=== PATIENT | female | born 1980 | race Caucasian/White ===

== ENCOUNTER 2020-07-14 13:13 | Outpatient (REF) | payer OTHER, SELFPAY | END 2020-07-14 13:14 | disposition home or self-care (01) | LOC: HO.LAB 13:13 | PROVIDERS: Visit Provider Internal Medicine | DX: Z20.822 Contact with and (suspected) exposure to COVID-19 (principal) | CPT/HCPCS: C9803; U0003; U0005 ==

== ENCOUNTER 2021-06-07 10:06 | Outpatient (REF) | payer MEDICAID, SELFPAY ==
--- NOTE | ~2021-06-07 | MM_ITS ---
EXAMINATION: MM SCREENING DIGITAL BREAST TOMOSYNTHESIS, BILATERAL CLINICAL INFORMATION: Screening. Asymptomatic. No prior breast imaging. Age 41. The lifetime risk of breast cancer based on the Tyrer-Cuzick Model is 13%. COMPARISON: None (current study represents initial baseline exam). TECHNIQUE: Digital breast tomosynthesis is performed in both the craniocaudal and mediolateral oblique views along with computer-aided detection (CAD). Synthesized 2D images are generated from the tomosynthesis. Additional exaggerated right CC and additional right MLO views are provided. FINDINGS: There are scattered areas of fibroglandular density (ACR BI-RADS breast composition Category b). There are no significant masses, abnormal calcifications, or other abnormalities. Breast tissue composition borders on heterogeneously dense. The axilla and skin contours are unremarkable. MM/MM tomosynthesis screening BI IMPRESSION: No mammographic evidence of malignancy. ASSESSMENT: BI-RADS 1: Negative RECOMMENDATION: Routine annual mammography screening. This patient's information was entered into a reminder system with a target due date for their next mammogram.
== END 2021-06-07 10:07 | disposition home or self-care (01) ==
LOC: HO.MAMMO 10:06
PROVIDERS: Visit Provider Nurse Practitioner Family
DX: Z12.31 Encounter for screening mammogram for malignant neoplasm of breast (principal)
CPT/HCPCS: 77063; 77067

== ENCOUNTER 2022-10-03 13:49 | Outpatient (REF) | payer MEDICAID, SELFPAY ==
--- NOTE | ~2022-10-03 | MM_ITS ---
EXAMINATION: MM SCREENING DIGITAL BREAST TOMOSYNTHESIS, BILATERAL CLINICAL INFORMATION: Screening. Asymptomatic. The lifetime risk of breast cancer based on the Tyrer-Cuzick Model is 18.3%. COMPARISON: Mammography: This study is compared with prior exams dating back to 2021. TECHNIQUE: Digital breast tomosynthesis is performed in both the craniocaudal and mediolateral oblique views along with computer-aided detection (CAD). Synthesized 2D images are generated from the tomosynthesis. FINDINGS: There are scattered areas of fibroglandular density (ACR BI-RADS breast composition Category b). There are no significant masses, abnormal calcifications, or other abnormalities. MM/MM tomosynthesis screening BI IMPRESSION: No mammographic evidence of malignancy. ASSESSMENT: BI-RADS BI-RADS 1 - Negative RECOMMENDATION: Routine annual mammography screening. 1 year F/U This examination should not preclude the clinical evaluation of a suspicious palpable abnormality. This patient's information was entered into a reminder system with a target due date for their next mammogram.
== END 2022-10-03 13:50 | disposition home or self-care (01) ==
LOC: HO.MAMMO 13:49
PROVIDERS: PCP Student in an Organized Health Care Education/Training Program; Visit Provider Student in an Organized Health Care Education/Training Program
DX: Z12.31 Encounter for screening mammogram for malignant neoplasm of breast (principal)
CPT/HCPCS: 77063; 77067

== ENCOUNTER → 2022-10-03 14:00 | Outpatient (BNV) | payer MEDICAID, SELFPAY | PROVIDERS: PCP Student in an Organized Health Care Education/Training Program; Visit Provider Radiology Diagnostic Radiology | DX: Z12.31 Encounter for screening mammogram for malignant neoplasm of breast (principal) | CPT/HCPCS: 77063; 77067 ==

== ENCOUNTER 2023-01-16 11:58 | Outpatient (REF) | payer MEDICAID, SELFPAY ==
[2023-01-16 14:01] LABS: Estimated Average Glucose 126 mg/dL
[2023-01-16 14:34] LABS: Alanine Aminotransferase 20 U/L (0-31); Albumin Level 4.1 g/dL (3.5-5.0); Alkaline Phosphatase 88 U/L (39-117); Anion Gap 9 (12-20); Aspartate Amino Transferase 17 U/L (5-31); Bilirubin Total 0.4 mg/dL (0.0-1.0); Blood Urea Nitrogen 10 mg/dL (9-16); Calcium 9.2 mg/dL (8.4-10.2); Carbon Dioxide 31 mmol/L (22-29); Chloride 101 mmol/L (96-108); Estimated Glomerular Filt Rate > 60; Glucose Random 107 mg/dL (60-115); Potassium 3.7 mmol/L (3.3-5.1); Sodium 137 mmol/L (135-145); Total Protein 7.8 g/dL (6.5-8.0)
== END 2023-01-16 11:59 | disposition home or self-care (01) ==
LOC: HO.HHCL 11:58
PROVIDERS: Visit Provider Student in an Organized Health Care Education/Training Program
DX: R73.03 Prediabetes (principal)
CPT/HCPCS: 36415; 80053; 83036

== ENCOUNTER 2023-03-22 17:11 | Outpatient (REF) | payer MEDICAID, SELFPAY ==
[2023-03-30 06:05] LABS: HPV mRNA E6/E7 rflx Not Detected (Not Detected)
== END 2023-03-22 17:12 | disposition home or self-care (01) ==
LOC: HO.HHCLNP 17:11
PROVIDERS: Visit Provider Advanced Practice Midwife
DX: Z30.431 Encounter for routine checking of intrauterine contraceptive device (principal)
CPT/HCPCS: 87624; 88142

== ENCOUNTER 2023-11-09 11:41 | Outpatient (REF) | payer MEDICAID, SELFPAY ==
[2023-11-09 13:45] LABS: Hematocrit 41.2 % (37.0-47.0); Hemoglobin 13.6 g/dl (12.0-16.0); Mean Corpuscular Hemoglobin 29.8 pg (27.0-33.0); Mean Corpuscular Volume 90.4 fL (80.0-98.0); Mean Platelet Volume 10.5 fL (9.4-12.3); Platelet Count 327 X10*3/uL (160-400); Red Blood Count 4.56 X10*6/uL (4.20-5.50); Red Cell Distribution Width 12.8 % (11.0-16.0); White Blood Count 5.6 X10*3/uL (4.8-10.8)
[2023-11-09 14:22] LABS: Estimated Average Glucose 120 mg/dL; Hemoglobin A1c % 5.8 % (<6.0)
[2023-11-09 14:26] LABS: Alanine Aminotransferase 17 U/L (0-31); Albumin Level 4.1 g/dL (3.5-5.0); Alkaline Phosphatase 76 U/L (39-117); Anion Gap 10 (12-20); Aspartate Amino Transferase 15 U/L (5-31); Bilirubin Total 0.2 mg/dL (0.0-1.0); Blood Urea Nitrogen 11 mg/dL (9-16); Carbon Dioxide 26 mmol/L (22-29); Chloride 106 mmol/L (96-108); Cholesterol 188 mg/dL (<200); Estimated Glomerular Filt Rate > 60; Glucose Random 89 mg/dL (60-115); HDL Cholesterol 50 mg/dL (>40); LDL Cholesterol Calculated 123 mg/dL (<100); Sodium 138 mmol/L (135-145); TSH reflex Free T4 0.46 uIU/mL (0.32-4.0); Total Protein 7.8 g/dL (6.5-8.0); Triglycerides 79 mg/dL (<150); Vitamin D 25-OH Total 38.2 ng/mL (>30)
[2023-11-10 07:24] LABS: Syphilis Screen Nonreactive (Nonreactive)
[2023-11-10 07:44] LABS: HBS Num1 0.22 mIU/mL (0-7.99); HBc Num1 0.33 S/CO (0.00-0.79); HBsAGNum1 0.28 S/CO (0.00-0.99); HIV AB/AG Nonreactive (Nonreactive); Hepatitis B Core Antibody Nonreactive (Nonreactive); Hepatitis B Surface Antigen Negative (Negative); ~HepC Num1 0.16 S/CO (0.00-0.79); ~Hepatitis B Surface Antibody NONREACTIVE (Nonreactive); ~Hepatitis C Antibody Nonreactive (Nonreactive)
== END 2023-11-09 11:42 | disposition home or self-care (01) ==
LOC: HO.HHCL 11:41
PROVIDERS: Visit Provider Student in an Organized Health Care Education/Training Program
DX: Z00.00 Encounter for general adult medical examination without abnormal findings (principal)
CPT/HCPCS: 36415; 80053; 80061; 82306; 83036; 84443; 85027; 86704; 86706; 86780; 86803; 87340; 87389

== ENCOUNTER 2024-01-10 09:33 | Outpatient (REF) | payer MEDICAID, SELFPAY ==
[2024-01-10 11:55] LABS: Alanine Aminotransferase 20 U/L (0-31); Albumin Level 3.9 g/dL (3.5-5.0); Alkaline Phosphatase 78 U/L (39-117); Anion Gap 10 (12-20); Aspartate Amino Transferase 18 U/L (5-31); Bilirubin Total 0.3 mg/dL (0.0-1.0); Blood Urea Nitrogen 11 mg/dL (9-16); Calcium 8.6 mg/dL (8.4-10.2); Carbon Dioxide 27 mmol/L (22-29); Chloride 104 mmol/L (96-108); Estimated Glomerular Filt Rate > 60; Glucose Random 82 mg/dL (60-115); Sodium 137 mmol/L (135-145); Total Protein 7.3 g/dL (6.5-8.0)
[2024-01-10 17:20] LABS: CT PCR NOT DETECTED (Not Detect.); NG PCR NOT DETECTED (Not Detect.)
== END 2024-01-10 09:34 | disposition home or self-care (01) ==
LOC: HO.HHCL 09:33
PROVIDERS: Visit Provider Student in an Organized Health Care Education/Training Program
DX: Z00.00 Encounter for general adult medical examination without abnormal findings (principal); I10 Essential (primary) hypertension
CPT/HCPCS: 80053; 87491; 87591

== ENCOUNTER → 2024-02-29 13:00 | Outpatient (BNV) | payer MEDICAID, SELFPAY | PROVIDERS: PCP Student in an Organized Health Care Education/Training Program; Visit Provider Internal Medicine | DX: Z12.31 Encounter for screening mammogram for malignant neoplasm of breast (principal) | CPT/HCPCS: 77063; 77067 ==

== ENCOUNTER 2024-02-29 13:06 | Outpatient (REF) | payer MEDICAID, SELFPAY | END 2024-02-29 13:07 | disposition home or self-care (01) | LOC: HO.MAMMO 13:06 | PROVIDERS: PCP Student in an Organized Health Care Education/Training Program; Visit Provider Student in an Organized Health Care Education/Training Program | DX: Z12.31 Encounter for screening mammogram for malignant neoplasm of breast (principal) | CPT/HCPCS: 77063; 77067 ==

== ENCOUNTER 2024-06-16 12:32 | Outpatient (REF) | payer MEDICAID, SELFPAY ==
[2024-06-16 14:02] LABS: Alanine Aminotransferase 25 U/L (0-31); Albumin Level 4.1 g/dL (3.5-5.0); Alkaline Phosphatase 80 U/L (39-117); Anion Gap 11 (12-20); Aspartate Amino Transferase 23 U/L (5-31); Bilirubin Total 0.3 mg/dL (0.0-1.0); Blood Urea Nitrogen 15 mg/dL (9-16); Calcium 9.2 mg/dL (8.4-10.2); Carbon Dioxide 28 mmol/L (22-29); Chloride 104 mmol/L (96-108); Estimated Glomerular Filt Rate > 60; Glucose Random 85 mg/dL (60-115); Potassium 3.7 mmol/L (3.3-5.1); Sodium 139 mmol/L (135-145); Total Protein 7.7 g/dL (6.5-8.0)
--- OUTSIDE RECORDS SUMMARY | 2024-06-16 14:26 | XMS_ITS | Clinical Summary ---
Author Organization [facility] ity Address [address] [place] [address] Care Team Providers Care Data Center Project Manager Name Role Phone Unavailable Primary Care Provider Unavailabl e Social History Tobacco Use Types Packs/Day Years Used Date Smoking Tobacco: Never Assessed Comments Unknown Sex and Gender Information Value Date Recorded Sex Assigned at Not on file Legal Sex Female 8:25 PM EST Gender Identity Not on file Sexual Orientation Not on file Plan of Treatment Health Maintenance Due Date Last Done Comments Breast Cancer Screening 1979 DTaP,Tdap,and Td Vaccines (1 - Tdap) 1998 Hepatitis B Vaccines (1 of 3 - 19+ 3-dose series) 1998 Cervical Cancer Screening: P ap Smear 02/20/2000 Colorectal Cancer Screening: Colonoscopy 03/30/2023 Depression Screening 03/30/2023 HIV Screening 03/30/2023 Hepatitis C Screening 03/30/2023 Social Influencers of Health Screening 03/30/2023 COVID-19 Vaccine (2023-2 5 season) 2023 Influenza Vaccine (Season Ended) 2024 HIB Vaccines Aged Out No longer eligi ble based on patient's age to complete this topic HPV Vaccines Aged Out No longer eligi ble based on patient's age to complete this topic Hepatitis A Vaccines Aged Out No long er eligible based on patient's age to complete this topic IPV Vaccines Aged Out No longer eligi ble based on patient's age to complete this topic MMR Vaccines Aged Out No longer eligi ble based on patient's age to complete this topic Meningococcal ACWY Vaccine Aged Out N o longer eligible based on patient's age to complete this topic Meningococcal B Vaccine Aged Out No l onger eligible based on patient's age to complete this topic Pneumococcal Vaccine: Pediat rics (0 to 5 Years) and At-Risk Patients (6 to 64 Years) Aged Out No longer eligible b ased on patient's age to complete this topic RSV Immunization Patients Un adilson 20 months Aged Out No longer eligible b ased on patient's age to complete this topic Varicella Vaccines Aged Out No longer eligible based on patient's age to complete this topic
--- OUTSIDE RECORDS SUMMARY | 2024-06-16 14:26 | XMS_ITS | Encounter Summary ---
Author Organization [employer] Address [address] [place] [address] [address] [place] [address] Care Team Providers Care Foot Caster Name Role Phone Rosalie Morejon MD Primary Care Pro vider Reason for Visit * Reason Comments Med Refill Encounter Details Date Type Department Care Team (Late st Contact Info) Description 08/28/2023 Refill [facility] MEDICINE [address] [place], [place] [phone] Rosalie Morejon MD [address] [place], [place] [phone] Social History Tobacco Use Types Packs/Day Years Used Date Smoking Tobacco: Never Passive Smoke Exposure: Never Smokeless Tobacco: Never Alcohol Use Standard Drinks/Week Comments Yes 0 (1 standard drink = 0.6 oz pur e alcohol) social Depression Answer Date Recorded Patient Health Questionnaire-9 Score 1 08/24/2022 Housing Stability Answer Date Recorded What is your housing situation today? I have andrew wynne 08/03/[address] you li ve. Do you have problems with any of the following? None of the above 08/03/2023 Food Insecurity Answer Date Recorded Within the past 12 months, y ou worried that your food would run out before you got money to buy more: Never True 08/03/2023 Within the past 12 months,th e food you bought just didn't last and you didn't have enough money to get more: Never True Transportation Answer Date Recorded In the past 12 months, has l ack of transportation kept you from medical appts, meetings, work or from getting things needed for daily living? No 08/03/2023 Utilities Answer Date Recorded In the past 12 months, has t he electric, gas, oil or water company threatened to shut off services in your home? No 08/03/2023 Depression Answer Date Recorded Patient Health Questionnaire-2 Score 0 08/10/2023 Comments No Sex and Gender Information Value Date Recorded Sex Assigned at Female 01/02/2022 10:36 AM EDT Legal Sex Female 10:36 AM EDT Gender Identity Female 01/02/2022 10:36 AM EDT Sexual Orientation Straight 01/02/2022 10 :36 AM EDT documented as of this encounter Plan of Treatment Upcoming Encounters Date Type Department Care Team (Late st Contact Info) Description 06/17/2024 1:15 PM EDT Procedure Visit [facility] MEDICINE [address] [place] [address] Theresa Neri, EDWIN [address] [place] [address] 07/22/2024 3:00 PM EDT Office Visit [facility] OPTOMETRY [address] [place] [address] Chester, Joann, OD [address] [place] [address] 09/02/2024 10:15 AM EDT Office Visit [facility] MEDICINE [address] [place] [address] Rosalei Morejon MD [address] [place] [phone] documented as of this encounter Visit Diagnoses Not on filedocumented in this encounter Additional Health Concerns Assessment Noted Time PHQ-9 Depression Total Score: 1 08/25/19 23 11:16 AM EDT documented as of this encounter Care Teams Foot Caster Relationship Specialty Start Date End Date Rosalie Morejon MD [address] [place] [id number] PCP - General Internal Medicine 08/04/22 documented as of this encounter
--- OUTSIDE RECORDS SUMMARY | 2024-06-16 14:26 | XMS_ITS | Clinical Summary ---
Author Organization [employer] Address [address] [place] [address] [address] [place] [address] Care Team Providers Care Cook Cold Meat Name Role Phone Rosalie Morejon MD Primary Care Pro vider Allergies No known active allergies Medications Blood Pressure kitIndications :Elevated blood pressure reading 1 Device in the morning. 1 kit 023 Active Alcohol Swabs (Alcohol Pads) 70 % pads Use as directed on skin 100 each 2 023 Active Alcohol Swabs (Alcohol Pads) 70 % pads Use as directed on skin 100 each 3 024 Active hydroCHLOROthi azide (HYDRODiuril) 25 MG tablet Take 1 tablet (25 mg) by mouth in the morning. 90 tablet 024 Active Tirzepatide-We ight Management (Zepbound) 10 MG/0.5ML solution auto-injector Inject 0.5 mL (10 mg) under the skin 1 (one) time per week. 2 mL 025 2024 Active Zepbound 2.5 MG/0.5ML solution auto-injectorI ndications:Pre diabetes,Class 3 severe obesity due to excess calories without serious comorbidity with body mass index (BMI) of 40.0 to 44.9 in adult ([facility]) INJECT ONE PEN (=2.5MG) SUBCUTANEOUSLY ONCE A WEEK DIRECTED 2 mL 025 2024 Discontinued(D ose adjustment) Tirzepatide-We ight Management (Zepbound) 5 MG/0.5ML solution auto-injector Inject 0.05 mL (0.5 mg) under the skin every 7 (seven) days. 2 mL 025 2024 Discontinued Tirzepatide-We ight Management (Zepbound) 7.5 MG/0.5ML solution auto-injector Inject 0.5 mL (7.5 mg) under the skin 1 (one) time per week. 2 mL 025 2024 Discontinued Active Problems Problem Noted Date Diagnosed Date Skin lesions 08/10/2023 Hypertension 12/24/2022 Assessment & Plan (12/24/2022 8:32 AM EDT): Newly dxed HTN w mx elevated BP readings here and at home -EKG today : NSR, HR:77 no ischemic findings QTC 414, -start HDCTZ low dose -ordered today chem -pt will do labs just few days prior to next apt to monitor after 4 weeks of started on med -f BP in 4 weeks Prediabetes 09/25/2022 Assessment & Plan (12/24/2022 8:28 AM EDT): 08/2022 Hb1AC 5.9 -life style changes advised -nutriotinist referral -agreed today -continue metformin 500 mg ER daily -repeat hb1AC and chem today Assessment & Plan (09/25/2022 11:14 PM EDT): 08/2022 Hb1AC 5.9 -life style changes advised -refusing nutriotinist referral -start metformin 500 mg ER daily-explained possible SE -repeat hb1AC and chem in 3 mo Obese 08/24/2022 Assessment & Plan (12/24/2022 8:29 AM EDT): Advised pt to improve diet and exercise,discussed healthy life style -discussed chairman president and chief executive officer referral --referred today -also discussed today x bariatric surgery-refusing x now -reports snoring -loud -referred for sleep med-- gave today information to pt to call for apt Assessment & Plan (09/25/2022 11:11 PM EDT): Advised pt to improve diet and exercise,discussed healthy life style -discussed chairman president and chief executive officer referral --refusing -also discussed today x bariatric surgery-refusing x now -reports snoring -loud -referred today to sleep med -will monitor weight in 3 mo w diet changes advised if not able to weight loss -states will consider bariatric surgery as option Assessment & Plan (08/24/2022 7:38 PM EDT): Advised pt to improve diet and exercise,discussed healthy life style -discussed chairman president and chief executive officer referral --refusing -also discussed today x bariatric surgery-refusing -pt interested in GLP1 med--will eval labs 1st and will discuss w pt at next apt -will discuss about KIYA symptoms at next visit -if positive will refer to sleep med Health care maintenance 08/24/2022 Assessment & Plan (12/24/2022 8:30 AM EDT): -Quantiferon 11/2021 neg -pap smear: 2017 neg -referred to Eduard cook -contraception: IUD -MM 10/2022 BI-RADS 1 - Negative -vaccines: s/p covid 19 x2--refusing Bivalent offered today again, s/p tdap 08/2022 , never HPV vaccine-not interested in vaccination,HepB not immune-refuse vaccine,refusing flu vaccine offered today Assessment & Plan (09/25/2022 11:13 PM EDT): -Quantiferon 11/2021 neg -pap smear: 2017 neg -referredw Eduard Manrique -contraception: IUD -MM 06/2021-BIRADS 1-referred Already pd to have apt -vaccines: s/p covid 19 x2--refusing Bivalent offered today again, s/p tdap 08/2022 , never HPV vaccine-not interested in vaccination,HepB not immune-refuse vaccine Assessment & Plan (08/24/2022 7:36 PM EDT): -Quantiferon 11/2021 neg -pap smear: 2017 neg -referred here today w Eduard Manrique -contraception: IUD -MM 06/2021-BIRADS 1-referred today -vaccines: s/p covid 19 x2--refusing Bivalent offered today, tdap today , never HPV vaccine-not interested in vaccination -labs x annual exam -will RTC in fasting -pt agreed to have STI testing including HIV to have for baseline IUD (intrauterine device) in place 08/15/2022 Hyperlipidemia 05/15/2021 Assessment & Plan (12/24/2022 8:29 AM EDT): 08/2022 Total ch 199, HDL 54, LDL 120 trig 132 ASCVD 0.8% ( no indication x statins) -life style changes advised -repeat in 1 y -at annual exam Assessment & Plan (09/25/2022 11:12 PM EDT): 08/2022 Total ch 199, HDL 54, LDL 120 trig 132 ASCVD 0.8% ( no indication x statins) -life style changes advised -repeat in 1 y Assessment & Plan (08/24/2022 7:33 PM EDT): -repeat fasting lipids Resolved Problems Problem Noted Date Diagnosed Date Resolved Date Elevated blood pressure reading 08/24/2022 12/24/2022 Assessment & Plan (09/25/2022 11:10 PM EDT): Pt not monitoring yet BP at home Here after rechecked manually was normal 08/2022 Microalb neg -pt will bring home BP readings 3 times a week at next apt Assessment & Plan (08/24/2022 7:37 PM EDT): Here w elevated BP today -pt will bring home BP readings 3 times a week at next apt -if ongoing elevated will start BP meds -noted had microalb elevated before -repeat today Encounters Date Type Department Care Team Description 06/06/2024 11:15 AM EDT Office Visit [facility] MED[facility]INE [address] [place] [address] [phone] Rosalie Morejon MD Hypertension, unspecified type (Primary Dx); Class 3 severe obesity due to excess calories without serious comorbidity with body mass index (BMI) of 40.0 to 44.9 in adult ([facility]); Loud snoring; Dietary counseling; Exercise counseling; Health care maintenance 06/06/2024 Travel 05/27/[address] [facility] [address] [place] [phone] Rosalie Morejon MD chart prep 05/23/[address] [facility] P[facility]S [address] [place] [address] Breann Stevens MD 05/19/[address] [facility] [address] [place] [address] Rosalie Morejon MD Jessie Recall 05/16/2024 Population Health Risk Score [facility] Department [address] [place] [phone] Provider, Population Health Generic 05/01/[address] [facility] [address] [place] [address] Rosalie Morejon MD 03/26/[address] [facility] [address] [place] [address] Janessa Morfin ANP Prediabetes; Class 3 severe obesity due to excess calories without serious comorbidity with body mass index (BMI) of 40.0 to 44.9 in adult ([facility]) 03/25/[address] [facility] [address] [place] [address] Kiki Saucedo LPN from Last 3 Months Immunizations Name Administration Dates Next Due Tdap 08/24/2022,04/13/2011 Family History Medical History Relation Name Comments Heart attack, HTN,DM2 Father Ovarian cancer Father's Sister stroke,HTN Mother paternal's cousin colon ca Other Relation Name Status Comments Father Father's Sister Mother Other Social History Tobacco Use Types Packs/Day Years Used Date Smoking Tobacco: Never Passive Smoke Exposure: Never Smokeless Tobacco: Never Tobacco Cessation:Counseling Given: Not Answered Alcohol Use Standard Drinks/Week Comments Yes 0 [...] Orientation Straight 01/02/2022 10 :36 AM EDT Last Filed Vital Signs Vital Sign Reading Time Taken Comments Blood Pressure 136/77 06/06/2024 11:18 AM EDT Pulse 68 06/06/2024 11:18 AM EDT Temperature 36.5 ??C (97.7 ??F) 06/06/2024 11:18 AM E DT Respiratory Rate 20 06/06/2024 11:18 AM EDT Oxygen Saturation 98% 06/06/2024 11:18 AM EDT Inhaled Oxygen Concentration - - Weight 92.2 kg (203 lb 3.2 oz) 06/06/2024 11:18 AM EDT Height 147.3 cm (4' 10 ) 06/06/2024 11:18 AM EDT Body Mass Index 42.47 06/06/2024 11:18 AM EDT Plan of Treatment Upcoming Encounters Date Type Department Care Team (Late st Contact Info) Description 06/17/2024 1:15 PM EDT Procedure Visit [facility] [address] [place] [address] Eduard Griffith CNM [address] [place] [address] 07/22/2024 3:00 PM EDT Office Visit [facility] OPTOMETRY [address] [place] [address] Joann Briggs, OD [address] [place] [address] 09/02/2024 10:15 AM EDT Office Visit [facility] [address] [place] [address] Rosalie Morejon MD [address] [place] [address] Health Maintenance Due Date Last Done Comments CT Colonography 1979 Colonoscopy 1979 Colorectal Cancer Screening 1980 FIT DNA/Cologuard 1979 FIT 1980 FOBT 1980 Sigmoidoscopy 1980 Family Planning (PISQ) 1994 Hepatitis B Vaccines (1 of 3 - 19+ 3-dose series) 1998 COVID-19 Vaccine ( season) 2023 11/09/2021, 10/10/2021 Influenza Vaccine (#1) 2023 SDOH Screening 08/02/2024 08/03/2023 Depression Screening 08/09/2024 08/10/2023, 08/25/19 23 Diabetes: Hemoglobin A1C 11/08/2024 024, 01/16/2023, 08/25/2022, Additional history exists Alcohol/Substance Use Screening 06/06/2025 06/06/2024 Tobacco Screening 06/06/2025 06/06/2024 Mammogram 02/28/2026 02/29/2024, 08/0 03/2022, 06/07/2021 Cervical Cancer Screening 03/22/2026 HPV/Cotest 03/22/2026 03/22/2023 Pap Smear 03/22/2026 03/22/2023 Lipid Panel 11/08/2028 11/09/2023, 08/04, 05/10/2021 Zoster Vaccines (1 of 2) 2029 DTaP/Tdap/Td Vaccines (3 - Td or Tdap) 08/24/2032 08/24/2022, 04/13/2011 RSV Patients and Patients Aged 60 years or older (1 - 1-dose 75+ series) 2054 HIV Screening Completed 11/09/2023, 08/04, 05/10/2021 Hepatitis C Screening Completed 11/09/2023 , 08/25/2022, 05/10/2021 HIB Vaccines Aged Out No longer eligi [...] patient's age to complete this topic Meningococcal Vaccine Aged Out No dani rachana eligible based on patient's age to complete this topic Pneumococcal Vaccine: Pediatrics (0 to 5 Years) and At-Risk Patients (6 to 49) Years) Aged Out No longer eligible based on patient's age to complete this topic RSV under 20 months Aged Out No longe r eligible based on patient's age to complete this topic Rotavirus Vaccines Aged Out No longer eligible based on patient's age to complete this topic Procedures Procedure Name Priority Date/Time Associated Diagnosis Comments COMPREHENSIVE METABOLIC PANEL Routine 06/16/2024 12:35 PM EDT Hypertension, unspecified type BI MAMMOGRAM SCREENING TOMOSYNTHESIS BILATERAL Routine 02/29/2024 1:10 PM EST HEPATITIS C AB W/REFL TO HCV RNA, QN, PCR Routine 11/09/2023 11:42 AM EDT Annual physical exam HIV 1/2 ANTIGEN/ANTIBODY, FOURTH GENERATION W/RFL Routine 11/09/2023 11:42 AM EDT Annual physical exam HEMOGLOBIN A1C Routine 11/09/2023 11:42 AM EDT Annual physical exam LIPID PANEL, STANDARD Routine 11/09/2023 11:42 AM EDT Annual physical exam HPV MRNA E6/E7 REFLEX TO HPV 16, 18/45 Routine 03/22/2023 1:30 PM EST PAP SMEAR Routine 03/22/2023 1:30 PM EST Cervical cancer screening from Last 3 Months or Most Recently Relevant to Health Maintenance Results * (ABNORMAL) Comprehensive Metabolic Panel (06/16/2024 12:35 PM EDT) Sodium 139 135 - 145 mmol/L [facility] Potassium 3.7 3.3 - 5.1 mmol/L [facility] Chloride 104 96 - 108 mmol/L [facility] Carbon Dioxide 28 22 - 29 mmol/L [facility] Anion Gap 11(L) 12 - 20 [facility] Urea Nitrogen (BUN) 15 9 - 16 mg/dL [facility] Creatinine, Serum 0.63 0.5 - 1.4 mg/dL [facility] Estimated Glomerular Filt Rate >60 [facility] Comment:Chronic Kidney Disea se: Estimated GFR < 60 mL/min/1.68g1Rdczwt Kidney Disease: Estimated GFR < 15 mL/min/1.73m2 Glucose 85 60 - 115 mg/dL [facility] Calcium 9.2 8.4 - 10.2 mg/dL [facility] Bilirubin, Total 0.3 0.0 - 1.0 mg/dL [facility] Aspartate Amino Transferase 23 5 - 31 U/L [facility] Alanine Aminotransferase 25 0 - 31 U/L [facility] Total Protein 7.7 6.5 - 8.0 g/dL [facility] Albumin Level 4.1 3.5 - 5.0 g/dL [facility] Alkaline Phosphatase 80 39 - 117 U/L [facility] Blood Venous blood specimen / Unknown 06/16/2024 12:35 PM EDT 06/16/2024 1:19 PM EDT us Rosalie Martinez MD LAB BLOOD ORDERAB LES Final Result [facility] [address] [place] [phone] * BI Mammogram Screening Tomosynthesis Bilateral (02/29/2024 1:10 PM EST) Anatomical Region Laterality Modality Breast Bilateral Mammography 02/29/2024 1:10 PM EST Narrative 03/13/2024 10:27 AM EST ? [facility] [place] ? [address] ?[place] [address] ? Mammography Report ? Signed ? Patient: Shawna Martin ?MR#: ?? [id number] ? : 1980 ?Acct:[id number] ? Age/Sex: 44 / F ?ADM Date: 02/29/24 ? Loc: HO.MAMMO ? Attending Dr: Rosalie Martinez MD ? Ordering Physician: Rosalie Morejon MD ?Re ?? sults: 1Negative ? Date of Service: 02/28/ ?Follow Up: 1 Year From Orig ?? inal Mammogram ? Procedure(s): MM tomosynthesis screening BI ?? Accession Number(s): [id number] ? cc: Rosalie Morejon MD ? EXAMINATION: ?? MM SCREENING DIGITAL BREAST TOMOSYNTHESIS, BILATERAL ? CLINICAL INFORMATION: ? Screening. Asymptomatic. ? COMPARISON: ?? Mammography: Comparison is made with available priors ? TECHNIQUE: ?? Digital breast mammography with tomosynthesis is performed in both the ?? craniocaudal and mediolateral oblique views along with computer-aided ?? detection (CAD). ? FINDINGS: ?? The breasts are heterogeneously dense, which may obscure small masses ?? (ACR BI-RADS breast composition Category c). ? There are no significant masses, abnormal calcifications, or other ?? abnormalities. ? MM/MM tomosynthesis screening BI ?? IMPRESSION: ?? No mammographic evidence of malignancy. ? ASSESSMENT: ? BI-RADS BI-RADS 1 - Negative ? RECOMMENDATION: ?? Routine annual mammography screening. ? 1 year F/U ? This examination should not preclude the clinical evaluation of a ?? suspicious palpable abnormality. ? This patient's information was entered into a reminder system with a ?? target due date for their next mammogram. ? Electronically signed by: ??Melody Campbell DO ??03/13/2024 10:24 AM EST ? Dictated By: ?Melody Campbell DO ? Signed By: ?<Electronically signed by Melody Campbell, DO in OV> ? 03/13/24 1024 ? DD/ 1310 ? TD/TT: 02/29/24 1330 ? Machinist: ? Procedure Note Mgter, Image - 03/13/2024 Lucia [facility] [address] [place] [address] Mammography Report Signed Patient: Andrew Martinamarilis#: [id number] : 1980Acct:[id number] Age/Sex: 44 / FADM Date: 02/29/24 Loc: [facility] Attending Dr: Rosalie Martinez MD Ordering Physician: Rosalie Morejon sults: 1Negative Date of Service: 02/29/24Follow Up: 1 Year From Orig inal Mammogram Procedure(s): MM tomosynthesis screening BI Accession Number(s): [id number] cc: Rosalie Morejon MD EXAMINATION: MM SCREENING DIGITAL BREAST TOMOSYNTHESIS, BILATERAL CLINICAL INFORMATION: Screening. Asymptomatic. COMPARISON: Mammography: Comparison is made with available priors TECHNIQUE: Digital breast mammography with tomosynthesis is performed in both the craniocaudal and mediolateral oblique views along with computer-aided detection (CAD). FINDINGS: The breasts are heterogeneously dense, which may obscure small masses (ACR BI-RADS breast composition Category c). There are no significant masses, abnormal calcifications, or other abnormalities. MM/MM tomosynthesis screening BI IMPRESSION: No mammographic evidence of malignancy. ASSESSMENT: BI-RADS BI-RADS 1 - Negative RECOMMENDATION: Routine annual mammography screening. 1 year F/U This examination should not preclude the clinical evaluation of a suspicious palpable abnormality. This patient's information was entered into a reminder system with a target due date for their next mammogram. Electronically signed by: Melody Campbell DO 03/13/2024 10:24 AM [facility] [place]ictated By: Melody Campbell DO Signed By: <Electronically signed by Melody Campbell DO in OV> 03/13/24 1024 DD/ 1310 TD/TT: 02/29/24 1330 Machinist: us Rosalie Martinez MD IMG BI PROCEDURES Final Result * Hepatitis C Antibody with Reflex to HCV, RNA, Quantitative, Real-Time PCR (11/09/2023 11:42 AM EDT) Hepatitis C Antibody Nonreactive Nonreactive [facility] Comment:Antibodies to HCV no t detected; does not exclude early acuteHCV infection. Blood Venous blood specimen / Unknown 11/09/2023 11:42 AM EDT 11/09/2023 1:26 PM EDT Rosalie Martinez MD LAB BLOOD ORDERAB LES Final Result [facility] [address] [place] [phone] * HIV-1/2 Antigen and Antibodies, Fourth Generation, with Reflexes (11/09/2023 11:42 AM EDT) HIV AB/AG Nonreactive Nonreactive [facility] Comment:HIV-1 p24 Ag and/or HIV-1/HIV-2 Ab not detected.A test result that is nonreactive does not exclude thepossibility of exposure to or infection with HIV-1 and/orHIV-2. Nonreactive results in this assay for individualswith prior exposure to HIV-1 and/or HIV-2 may be due toantigen and antibody levels that are below the limit ofdetection of this assay.The [employer] HIV Ag/Ab Combo assay result andsupplemental assay results should be interpreted inconjunction with the patient's clinical presentation,history and other laboratory results. If the results areinconsistent with clinical evidence, additional testing issuggested to confirm the result. Blood Venous blood specimen / Unknown 11/09/2023 11:42 AM EDT 11/09/2023 1:26 PM EDT Rosalie Martinez MD LAB BLOOD ORDERAB LES Final Result [facility] [address] [place] [phone] * Hemoglobin A1c (11/09/2023 11:42 AM EDT) Hemoglobin A1c 5.8 <6.0 % [facility] Comment:Hemoglobin A1C Refer ence Range Adults: 4.8 - 6.0 % Non diabetic: < 6.0 % Goal: < 7.0 %Additional Action Suggested: > 8.0 %Note: Hemoglobin A1c results are invalid for patients with abnormal amounts of HbF. Blood transfusions may impact the HbA1c concentration in the patient sample. Estimated Average Glucose 120 mg/dL [facility] Comment:eAG = Estimated ave rage glucose which is %A1C expressed asaverage glucose, using the formula of the A2Q-ScpwggjPqgkcte Glucose study (ADAG), Diabetes Care, Vol.31,#8,Oct. 2007 Blood Venous blood specimen / Unknown 11/09/2023 11:42 AM EDT 11/09/2023 1:26 PM EDT us Rosalie Martinez MD LAB BLOOD ORDERAB LES Final Result Performing Organization Address [facility] Co de Phone Number [facility] [address] [place] [phone] * (ABNORMAL) Lipid Panel, Standard (11/09/2023 11:42 AM EDT) Triglycerides 79 <150 mg/dL [facility] Comment:Desirable Triglyceri de: less than 150 mg/dLBorderline High Triglyceride 150-199 mg/dLHigh Triglyceride: 200-499 mg/dLVery High Triglyceride: greater than or equal to 5OO mg/dL Cholesterol 188 <200 mg/dL [facility] Comment:Desirable Cholestero l: less than 200 mg/dLBorderline High Cholesterol: 200-239 mg/dLHigh Cholesterol: greater than 239 mg/dL LDL Cholesterol Calculated 123(H) <100 mg/dL [facility] Comment:Desirable LDL: less than 100 mg/dLNear Optimal/Above Optimal LDL: 110- 129 mg/dLBorderline High LDL: 130-159 mg/dLHigh LDL: 160-189 mg/dLVery High LDL: greater than or equal to 190 mg/dL HDL Cholesterol 50 >40 mg/dL [facility] Comment:Desirable HDL: great er than 40 mg/dL Note: This HDL assay may give artificially low results in patients with liver disease. Blood Venous blood specimen / Unknown 11/09/2023 11:42 AM EDT 11/09/2023 1:26 PM EDT us Rosalie Martinez MD LAB BLOOD ORDERAB LES Final Result Performing Organization Address [facility]/ZIP Co de Phone Number [facility] [address] [place] [phone] * HPV mRNA E6/E7 w/Reflex to HPV Genotypes 16, 18/45 (03/22/2023 1:30 PM EST) HPV nRNA E6/E7 Not Detected Not Detected [facility] Comment:Methodology: Transcr iption-Mediated AmplificationThis assay detects E6/E7 viral messenger RNA (mRNA) from 14high-risk HPV types (16,18,31,33,35,39,45,51,52,56,58,59,66,68).Cervical sources are required for HPV testing.If a vaginal source from a patient who has had atotal hysterectomy with removal of cervix wassubmitted, please contact the testing laboratoryfor alternative testing options.For additional information, please refer tohttp://[email or web address]/faq/IHE994x4(This link if provided for information/educational purposes only.)THIS TEST WAS PERFORMED AT:[facility] [place] [phone] MEDINA MD HPV mRNA E6/E7 TNP [facility] HPV 16 RNA TNP [facility] HPV 18/45 RNA [facility] 03/22/2023 1:30 PM EST 03/23/2023 9:15 AM EST us Eduard Griffith [facility] CYTOLOGY ORDERABLES F inal Result [facility] [address] [place] [phone] * Pap Smear (03/22/2023 1:30 PM EST) Swab Cervix uteri structure / Unknown 03/22/2023 1:30 PM EST 03/23/2023 9:15 AM EST Narrative [facility] - 04/04/2023 8:42 AM EST ----- ------- Name: Shawna Martin ?Age/Sex: 43/F ? : 1980 Unit#: [id number] ?? Attend Dr: EDUARD GRIFFITH CNM ?Re03/22/23 ?Status: DEP REF ? Location: HO.CLNP ? Disch: ? ----- ------- SPEC : [id number] ? RECD: 03/23/23 ? STATUS: ??SOUT ? REQ NUM: [id number] ? INDU: 03/22/23 ? SUBM DR: EDUARD GRIFFITH CNM ? ENTERED: ??03/26/23 ?SP TYPE: Pap Smr ?OTHR DR: ? ORDERED: ??Pap Smear ? Interpretation ?? Satisfactory for evaluation. ?? No endocervical cells seen. ?? Negative for intraepithelial lesion or malignancy. ?HPV mRNA E6/E7: ?NOT DETECTED ? This assay detects E6/E7 viral messenger RNA (mRNA) from 14 high-risk HPV types (16, 18, ?? 31, 33, 35, 39, 45, 51, 52, 56, 58, 59, 66, 68) ?? HPV testing performed by [facility], [place], [place]. ??See reference laboratory ?? portion of the EMR for entire report. ?Clinical Information LMP: Unknown date Previous PAP test: Unknown date/findings ? Material Received ?? ThinPrep-Cervical ----- ------- Signed (signature on file) MIRANDA Minor (ASCP) 04/04/2342 ? ----- ------- ? END OF REPORT ? us Eduard Griffith [facility] CYTOLOGY ORDERABLES F inal Result [facility] [address] [place] [phone] from Last 3 Months or Most Recently Relevant to Health Maintenance Insurance [facility] ST[facility] Care Teams Cook Cold Meat Relationship Specialty Start Date End Date Rosalie Morejon MD [address] [place] [phone] PCP - General Internal Medicine 08/04/22
--- OUTSIDE RECORDS SUMMARY | 2024-06-16 14:26 | XMS_ITS | Encounter Summary ---
Author Organization [id number] Address [address] [place] [address] [address] [address] Care Team Providers Care Service Rig Operator Name Role Phone Rosalie Morejon MD Primary Care Pro vider Reason for Visit * Reason Onset Date Comments Med Refill 05/01/2024 Encounter Details Date Type Department Care Team ([facility] st Contact Info) Description 05/01/2024 Refill [facility] MEDICINE [address] [place] [address] Rosalie Morejon MD [address] [place] [address] Social History Tobacco Use Types Packs/Day Years [...] Description 06/17/2024 1:15 PM EDT Procedure Visit [facility] MEDICINE [address] [place] [address] Theresa Neri, CNM [address] [place] [address] 07/22/2024 3:00 PM EDT Office Visit [facility] OPTOMETRY [address] [place] [address] Chester, Joann, OD [address] [place] [address] 09/02/2024 10:15 AM EDT Office Visit [facility] MEDICINE [address] [place] [address] Rosalie Morejon MD [address] [place] [phone] documented as of this encounter Visit Diagnoses Not on filedocumented in this encounter Additional Health Concerns Assessment Noted Time PHQ-9 Depression Total Score: 1 08/25/19 23 11:16 AM EDT documented as of this encounter Care Teams Service Rig Operator Relationship Specialty Start Date End Date Rosalie Morejon MD [address] [place] [phone] PCP - General Internal Medicine 08/04/22 documented as of this encounter
--- OUTSIDE RECORDS SUMMARY | 2024-06-16 14:26 | XMS_ITS | Encounter Summary ---
Author Organization [employer] Address [address] [place] [address] 7[facility] [place] [address] Care Team Providers Care Doctor Osteopathic Name Role Phone Rosalie Morejon MD Primary Care Pro vider Reason for Visit * Reason Comments Med Refill Encounter Details Date Type Department Care Team (Late st Contact Info) Description 11/15/2023 Refill [facility] MEDICINE [address] [place] [address] Rosalie Morejon MD [address] [place] [address] Social History Tobacco Use Types Packs/Day Years [...] Description 06/17/2024 1:15 PM EDT Procedure Visit [facility] MEDICINE [address] [place] [address] Theresa Neri, EDWIN [address] [place] [address] 07/22/2024 3:00 PM EDT Office Visit [facility] OPTOMETRY [address] [place] [address] Chester, Joann, OD [address] [place] [address] 09/02/2024 10:15 AM EDT Office Visit [facility] MEDICINE [address] [place] [address] Rosalie Morejon MD [address] [place] [phone] documented as of this encounter Visit Diagnoses Not on filedocumented in this encounter Additional Health Concerns Assessment Noted Time PHQ-9 Depression Total Score: 1 08/25/19 23 11:16 AM EDT documented as of this encounter Care Teams Doctor Osteopathic Relationship Specialty Start Date End Date Rosalie Morejon MD [address] [place] [phone] PCP - General Internal Medicine 08/04/22 documented as of this encounter
--- OUTSIDE RECORDS SUMMARY | 2024-06-16 14:26 | XMS_ITS | Encounter Summary ---
Author Organization [employer] Address [address] [place] [address] 7[facility] [place] [address] Care Team Providers Care Administrative Job Titles Name Role Phone Rosalie Morejon MD Primary Care Pro vider Reason for Visit * Reason Comments Med Refill Encounter Details Date Type Department Care Team (Late st Contact Info) Description 09/17/2023 Refill [facility] MEDICINE [address] [place], [place] [phone] Rosalie Morejon MD [address] [place] [address] Class 3 severe obesity due to excess calories without serious comorbidity with body mass index (BMI) of 40.0 to 44.9 in adult (CMS/HCC) Social History Tobacco Use Types Packs/Day Years Used Date Smoking Tobacco: Never Passive Smoke Exposure: Never Smokeless Tobacco: Never Alcohol Use Standard Drinks/Week Comments Yes 0 (1 standard drink = 0.6 oz pur e alcohol) social Depression Answer Date Recorded Patient Health Questionnaire-9 Score 1 08/24/2022 Housing Stability Answer Date Recorded What is your housing situation today? I have andrew sing 08/03/[address] you li [...] Description 06/17/2024 1:15 PM EDT Procedure Visit [facility] MEDICINE [address] [place] [phone] Theresa Neri CNM [address] [place] [address] 07/22/2024 3:00 PM EDT Office Visit [facility] OPTOMETRY [address] [place] [address] Joann Briggs, OD [address] [place] [address] 09/02/2024 10:15 AM EDT Office Visit [facility] MEDICINE [address] [place] [phone] Rosalie Morejon MD [address] [place] [address] documented as of this encounter Visit Diagnoses Diagnosis Class 3 severe obesity due to excess calories without serious comorbidity with body mass index (BMI) of 40.0 to 44.9 in adult ([facility]) Visit for pelvic exam- Primary documented in this encounter Additional Health Concerns Assessment Noted Time PHQ-9 Depression Total Score: 1 08/25/19 23 11:16 AM EDT documented as of this encounter Care Teams Administrative Job Titles Relationship Specialty Start Date End Date Rosalie Morejon MD [address] [place] [phone] PCP - General Internal Medicine 08/04/22 documented as of this encounter
== END 2024-06-16 12:33 | disposition home or self-care (01) ==
LOC: HO.HHCL 12:32
PROVIDERS: Visit Provider Student in an Organized Health Care Education/Training Program
DX: I10 Essential (primary) hypertension (principal)
CPT/HCPCS: 36415; 80053

== ENCOUNTER 2024-09-02 12:58 | Outpatient (REF) | payer MEDICAID, SELFPAY ==
--- NOTE | ~2024-09-02 | US_ITS ---
EXAMINATION: US PELVIS TRANSABDOMINAL AND TRANSVAGINAL HISTORY: ? Cervical fibroid vs prolapse. Also has IUD and strings not seen on exam COMPARISON: There are no prior studies available for comparison. TECHNIQUE: Transabdominal and endovaginal real-time 2D rondon-scale ultrasound was performed. FINDINGS: Uterus: The uterus is enlarged, measuring 13.8 x 8.8 x 10.9 cm. Myometrium has a normal echotexture. There is a 2.6 x 2.0 x 3.0 cm left cervical fibroid and a 5.9 x 5.9 x 5.8 cm posterior fibroid. Endometrium: The endometrial stripe measures 8 mm in thickness. There is partial visualization of an IUD. Evaluation is limited due to the multiple fibroids. There are nabothian cysts in the cervix. Right ovary: The right ovary measures 3.0 x 1.5 x 2.1 cm. The right ovary is normal in size and echotexture. Left ovary: The left ovary measures 2.8 x 1.6 x 1.8 cm. The left ovary is normal in size and echotexture. Pelvic fluid: none. US/US pelvic and transvaginal IMPRESSION: Fibroid uterus as described. Partial visualization of an IUD. The exact position is difficult to determine due to the multiple fibroids. Electronically signed by: Timi Figueroa MD 09/02/2024 02:00 PM EDT
--- OUTSIDE RECORDS SUMMARY | 2024-09-02 13:57 | XMS_ITS | Clinical Summary ---
Author Organization [facility] it[facility] Address [address] [place] [address] Care Team Providers Care Enterprise Application Analyst Name Role Phone Unavailable Primary Care Provider [...] Vaccine (2023-2 5 season) 2023 Influenza Vaccine (#1) 2024 HIB Vaccines Aged Out No longer [...]
== END 2024-09-02 12:59 | disposition home or self-care (01) ==
LOC: HO.US 12:58
PROVIDERS: Visit Provider Advanced Practice Midwife
DX: Z30.431 Encounter for routine checking of intrauterine contraceptive device (principal); N88.8 Other specified noninflammatory disorders of cervix uteri
CPT/HCPCS: 76830; 76856

== ENCOUNTER → 2024-09-02 13:00 | Outpatient (BNV) | payer MEDICAID, SELFPAY | PROVIDERS: Visit Provider Radiology Diagnostic Radiology | DX: D25.9 Leiomyoma of uterus, unspecified (principal) | CPT/HCPCS: 76830; 76856 ==